=== PATIENT | female | born 1975 | race Caucasian/White ===

== ENCOUNTER 2020-05-10 14:22 | Inpatient (IN) | payer MEDICAID ==
[~2020-05-10] VITALS: Ht 165.1 cm; Wt 112.7 kg
[~2020-05-10 14:22] MED LIST: OMEG1CAP6 PO; PROZ10 PO; TOPI50TA PO; TRAZ150T79 PO
[2020-05-10 16:49] VITALS: BP 109/89
[2020-05-10] MEDS ORDERED: LORazepam 2 MG TABLET PO PRN (17:00)
[2020-05-10] MEDS ORDERED: ChlorproMAZINE HCL 100 MG TABLET PO PRN (17:00)
[2020-05-10 17:10] VITALS: BP 138/93
[2020-05-10] MEDS ORDERED: MAGNESIUM HYDROXIDE SUSPENSION 30 ML UDCUP PO PRN (21:00)
[2020-05-10] MEDS ORDERED: ALBUTEROL SULFATE HFA 90 MCG/PUFF 8 GM INHALER IH PRN (21:00)
[2020-05-10] MEDS ORDERED: DOCUSATE SODIUM 100 MG CAPSULE PO PRN (21:00)
[2020-05-10] MEDS ORDERED: CloNIDine HCL 0.1 MG TABLET PO PRN (21:00)
[2020-05-10] MEDS ORDERED: ONDANSETRON HCL 4 MG TABLET PO PRN (21:00)
[2020-05-10] MEDS ORDERED: BENZOCAINE/MENTHOL LOZENGE MM PRN (21:00)
[2020-05-10] MEDS ORDERED: LOPERAMIDE HCL 2 MG CAPSULE PO PRN (21:00)
[2020-05-10] MEDS ORDERED: BACITRACIN 28.4 GM OINTMENT TP PRN (21:00)
[2020-05-10] MEDS ORDERED: MAG HYDROX/AL HYDROX/SIMETH ES 30 ML SUSPENSION UDCUP PO PRN (21:00)
[2020-05-10] MEDS ORDERED: ACETAMINOPHEN 325 MG TABLET PO PRN (21:00)
[2020-05-10] MEDS ORDERED: IBUPROFEN 600 MG TABLET PO PRN (21:00)
[2020-05-10] MEDS ORDERED: PETROLATUM,WHITE 28 GM JELLY TP PRN (21:00)
[2020-05-10] MEDS ORDERED: OMEPRAZOLE 20 MG CAPSULE PO PRN (21:00)
[2020-05-10] MEDS: ZOLPIDEM TARTRATE 10 MG TABLET PO PRN (21:05)
[2020-05-11] MEDS: LORazepam 1 MG TABLET PO PRN ×2 (00:04→16:59)
[2020-05-11 00:17] VITALS: BP 106/75
[2020-05-11 08:47] LABS: BASOPHILS % (AUTO) 0.4 % (0.0-2.0); HEMATOCRIT 39.7 % (36-46); HEMOGLOBIN 13.2 g/dL (12.0-16.0); LYMPHOCYTES # (AUTO) 3.8 K/uL (1.0-4.8); LYMPHOCYTES % (AUTO) 42.2 % (22.0-44.0); MEAN CORPUSCULAR HGB CONC 33.2 G/dL (31.0-37.0); MEAN CORPUSCULAR VOLUME 87 fL (80-100); MONOCYTES # (AUTO) 0.6 K/uL (0.1-1.0); MONOCYTES % (AUTO) 6.8 % (2.0-9.0); NEUTROPHILS # (AUTO) 4.3 K/uL (1.8-7.7); NEUTROPHILS % (AUTO) 47.6 % (40.0-70.0); PLATELET COUNT (AUTO) 245 K/uL (150-450); RED BLOOD CELL COUNT(AUTO) 4.55 MIL/uL (4.00-5.20); RED CELL DISTRIBUTION WIDTH 15.3 % (11.5-14.5)
[2020-05-11 08:58] VITALS: BP 104/78
[2020-05-11 08:59] LABS: ALANINE AMINOTRANSFERASE 42 U/L (12-78); ALBUMIN 3.5 g/dL (3.4-5.0); ALKALINE PHOSPHATASE 63 U/L (46-116); ANION GAP 9 mmol/L (8-16); ASPARTATE AMINOTRANSFERASE 27 U/L (15-37); BILIRUBIN,TOTAL 0.3 mg/dL (0.1-1.0); CALCIUM, TOTAL 8.7 mg/dL (8.8-10.5); CARBON DIOXIDE 27 mmol/L (22-29); CHLORIDE 107 mmol/L (98-107); CHOLESTEROL 185 mg/dL (131-200); CREATININE 1.03 mg/dL (0.60-1.30); GLOMERULAR FILTR. RATE CALC 59 mL/min (>60); GLUCOSE,RANDOM 92 mg/dL (70-110); HDL CHOLESTEROL 37 mg/dL (40-60); LDL CHOL (CALC.) 104 mg/dL (0-130); POTASSIUM 3.8 mmol/L (3.5-5.1); SODIUM SERUM 143 mmol/L (136-145); TOTAL PROTEIN, SERUM 7.7 g/dL (6.4-8.2); TRIGLYCERIDES 219 mg/dL (15-150); UREA NITROGEN, BLOOD 20 mg/dL (7-18)
[2020-05-11] MEDS ORDERED: ESCITALOPRAM OXALATE 10 MG TABLET PO SCH (09:00)
[2020-05-11] MEDS ORDERED: ARIPiprazole 5 MG TABLET PO SCH (09:00)
[2020-05-11 09:02] LABS: LITHIUM < 0.20 mmol/L (0.60-1.20)
[2020-05-11 09:22] LABS: HEMOGLOBIN A1C 6.1 % (3.8-5.6)
[2020-05-11] MEDS ORDERED: QUEtiapine FUMARATE 100 MG TABLET PO PRN (14:45)
[2020-05-11 16:21] VITALS: BP 103/69
[2020-05-11] MEDS ORDERED: QUEtiapine FUMARATE 200 MG TABLET PO SCH (21:00)
[2020-05-11] MEDS: DIVALPROEX SODIUM 500 MG ER TABLET PO SCH (21:06)
[2020-05-11] MEDS ORDERED: GuaiFENesin/D-METHORPHAN [SUGAR-FREE] 200-20MG/10 ML SYRUP UDCUP PO PRN (21:30)
[2020-05-11] MEDS ORDERED: HydrOXYzine PAMOATE 50 MG CAPSULE PO PRN (21:30)
[2020-05-12 04:00] VITALS: BP 100/60
[2020-05-12 08:26] LABS: CHOLESTEROL 175 mg/dL (131-200); FREE T4 (FREE THYROXINE) 0.86 ng/dL (0.76-1.46); HCG,QUANTITATIVE < 1 mIU/mL (0-6); HDL CHOLESTEROL 35 mg/dL (40-60); LDL CHOL (CALC.) 96 mg/dL (0-130); THYROID STIMULATING HORMONE 5.22 uIU/mL (0.36-3.74); TRIGLYCERIDES 222 mg/dL (15-150)
[2020-05-12] MEDS: FOLIC ACID 1 MG TABLET PO SCH (08:27)
[2020-05-12] MEDS: BuPROPion HCL XL 150 MG ER TABLET PO SCH (08:27)
[2020-05-12] MEDS: MULTIVITAMINS WITH MINERALS, THERAPEUTIC TABLET PO SCH (08:27)
[2020-05-12] MEDS: THIAMINE 100 MG TABLET PO SCH ×2 (08:28→16:14)
[2020-05-12] MEDS: NALTREXONE HCL 50 MG TABLET PO SCH (08:28)
[2020-05-12 08:55] VITALS: BP 127/60
[2020-05-12] MEDS ORDERED: ATOMOXETINE HCL 25 MG CAPSULE PO SCH (09:00)
[2020-05-12] MEDS ORDERED: BUPR-93 PO (13:39)
[2020-05-12] MEDS ORDERED: DIVA-80 PO (13:39)
[2020-05-12] MEDS ORDERED: ATOM25CA8 PO (13:39)
[2020-05-12] MEDS ORDERED: QUET200T PO (13:39)
[2020-05-12] MEDS ORDERED: NALT50TA6 PO (13:39)
[2020-05-12 17:51] VITALS: BP 110/71
[2020-05-12] MEDS: DIVALPROEX SODIUM 500 MG ER TABLET PO SCH (20:10)
[2020-05-12] MEDS: QUEtiapine FUMARATE 200 MG TABLET PO SCH (20:10)
[2020-05-13] VITALS (7 sets, daily range): BP systolic 106–118; BP diastolic 60–70
[2020-05-13 07:48] LABS: APPEARANCE,URINE CLEAR (CLEAR); BILIRUBIN,URINE NEGATIVE (NEGATIVE); GLUCOSE, URINE (UA) NEGATIVE (NEGATIVE); KETONES,URINE TRACE mg/dL (NEGATIVE); LEUKOCYTE ESTERASE ,URINE NEGATIVE (NEGATIVE); NITRATE,URINE NEGATIVE (NEGATIVE); OCCULT BLOOD,URINE NEGATIVE (NEGATIVE); PROTEIN,URINE NEGATIVE (NEGATIVE); UROBILINOGEN,URINE 0.2 mg/dL (<=1.0)
[2020-05-13] MEDS: ATOMOXETINE HCL 40 MG CAPSULE PO SCH (09:08)
[2020-05-13] MEDS: FOLIC ACID 1 MG TABLET PO SCH (09:08)
[2020-05-13] MEDS: MULTIVITAMINS WITH MINERALS, THERAPEUTIC TABLET PO SCH (09:08)
[2020-05-13] MEDS: BuPROPion HCL XL 150 MG ER TABLET PO SCH (09:08)
[2020-05-13] MEDS: NALTREXONE HCL 50 MG TABLET PO SCH (09:08)
[2020-05-13] MEDS: THIAMINE 100 MG TABLET PO SCH ×2 (09:08→17:17)
[2020-05-13] MEDS: LORazepam 1 MG TABLET PO PRN (13:27)
[2020-05-13] MEDS: DIVALPROEX SODIUM 500 MG ER TABLET PO SCH (23:06)
[2020-05-13] MEDS: QUEtiapine FUMARATE 200 MG TABLET PO SCH (23:06)
[2020-05-14 05:42] VITALS: BP 106/70
[2020-05-14] MEDS: ATOMOXETINE HCL 40 MG CAPSULE PO SCH (08:52)
[2020-05-14] MEDS: SULFAMETHOX/TRIMETH DS 800-160 MG/TABLET PO SCH ×2 (08:53→16:46)
[2020-05-14] MEDS: THIAMINE 100 MG TABLET PO SCH ×2 (08:53→16:46)
[2020-05-14] MEDS: FOLIC ACID 1 MG TABLET PO SCH (08:53)
[2020-05-14] MEDS: NALTREXONE HCL 50 MG TABLET PO SCH (08:53)
[2020-05-14] MEDS: BuPROPion HCL XL 150 MG ER TABLET PO SCH (08:53)
[2020-05-14] MEDS: MULTIVITAMINS WITH MINERALS, THERAPEUTIC TABLET PO SCH (08:53)
[2020-05-14 13:17] VITALS: BP 93/62
[2020-05-14 16:00] VITALS: BP 103/67
[2020-05-14] MEDS: QUEtiapine FUMARATE 200 MG TABLET PO SCH (20:05)
[2020-05-14] MEDS: DIVALPROEX SODIUM 500 MG ER TABLET PO SCH (20:05)
[2020-05-15] MEDS: ZOLPIDEM TARTRATE 10 MG TABLET PO PRN (00:12)
[2020-05-15 00:19] LABS: GLUCOMETER DEV NAME(LOC) BV2S.; GLUCOSE,POINT OF CARE 87 MG/DL (70-110)
[2020-05-15 00:41] VITALS: BP 104/79
[2020-05-15 08:23] VITALS: BP 96/59
[2020-05-15] MEDS: MULTIVITAMINS WITH MINERALS, THERAPEUTIC TABLET PO SCH (08:50)
[2020-05-15] MEDS: BuPROPion HCL XL 150 MG ER TABLET PO SCH (08:50)
[2020-05-15] MEDS: NALTREXONE HCL 50 MG TABLET PO SCH (08:50)
[2020-05-15] MEDS: THIAMINE 100 MG TABLET PO SCH (08:50)
[2020-05-15] MEDS: FOLIC ACID 1 MG TABLET PO SCH (08:51)
[2020-05-15] MEDS: ATOMOXETINE HCL 40 MG CAPSULE PO SCH (08:51)
[2020-05-15] MEDS: SULFAMETHOX/TRIMETH DS 800-160 MG/TABLET PO SCH (09:43)
[2020-05-15] MEDS ORDERED: ATOM40CA9 PO (14:24)
[2020-05-15] MEDS ORDERED: BUPR-47 PO (14:24)
[2020-05-15] MEDS ORDERED: DIVA-80 PO (14:24)
[2020-05-15] MEDS ORDERED: NALT50TA PO (14:24)
[2020-05-15] MEDS ORDERED: QUET200T29 PO (14:24)
[2020-05-15] MEDS ORDERED: SULF1TAB42 PO (15:05)
== END 2020-05-15 15:50 | disposition home or self-care (01) | DRG 885 ==
LOC: B2S 17:14
PROVIDERS: ADMIT Psychiatry & Neurology Psychiatry; ATTEND Psychiatry & Neurology Psychiatry
DX: F31.5 Bipolar disorder, current episode depressed, severe, with psychotic features (principal); R45.851 Suicidal ideations; Z68.41 Body mass index [BMI] 40.0-44.9, adult; N39.0 Urinary tract infection, site not specified; F41.9 Anxiety disorder, unspecified; I10 Essential (primary) hypertension; E11.9 Type 2 diabetes mellitus without complications; K21.9 Gastro-esophageal reflux disease without esophagitis; R56.9 Unspecified convulsions; E66.9 Obesity, unspecified; K59.00 Constipation, unspecified; F15.90 Other stimulant use, unspecified, uncomplicated; Z91.19 Patient's noncompliance with other medical treatment and regimen; R53.83 Other fatigue
CPT/HCPCS: 83036; 84439; 84443; 86592; Q0162

== ENCOUNTER 2020-05-13 18:53 | Emergency (ER) | payer MEDICAID, OTHER ==
[~2020-05-13] VITALS: Ht 165.1 cm; Wt 109.1 kg
[2020-05-13 20:12] LABS: APPEARANCE,URINE CLEAR (CLEAR); BILIRUBIN,URINE NEGATIVE (NEGATIVE); GLUCOSE, URINE (UA) NEGATIVE (NEGATIVE); KETONES,URINE TRACE mg/dL (NEGATIVE); LEUKOCYTE ESTERASE ,URINE NEGATIVE (NEGATIVE); NITRATE,URINE NEGATIVE (NEGATIVE); OCCULT BLOOD,URINE NEGATIVE (NEGATIVE); PROTEIN,URINE NEGATIVE (NEGATIVE); UROBILINOGEN,URINE 0.2 mg/dL (<=1.0)
[2020-05-13] MEDS ORDERED: ACETAMINOPHEN 325 MG TABLET PO ONE (20:15)
[2020-05-13] MEDS ORDERED: CefTRIAXone SODIUM 1 GM/VIAL IM ONE (20:15)
[2020-05-13] MEDS ORDERED: AZITHROMYCIN 500 MG TABLET PO ONE (20:15)
[2020-05-13] MEDS ORDERED: SULFAMETHOX/TRIMETH DS 800-160 MG/TABLET PO ONE (20:15)
[2020-05-13 20:45] LABS: BACTERIA,URINE None Seen /HPF (None Seen); RBC,URINE None Seen /HPF (0-2); SQUAMOUS EPITHELIAL CELL,UR Few /LPF (None Seen); WBC,URINE None Seen /HPF (0-5)
[2020-05-13 20:50] LABS: BASOPHILS % (AUTO) 0.4 % (0.0-2.0); EOSINOPHILS % (AUTO) 2.5 % (1.0-6.0); HEMATOCRIT 36.8 % (36-46); HEMOGLOBIN 12.2 g/dL (12.0-16.0); LYMPHOCYTES # (AUTO) 3.4 K/uL (1.0-4.8); LYMPHOCYTES % (AUTO) 38.8 % (22.0-44.0); MEAN CORPUSCULAR VOLUME 88 fL (80-100); MONOCYTES # (AUTO) 0.5 K/uL (0.1-1.0); MONOCYTES % (AUTO) 5.3 % (2.0-9.0); NEUTROPHILS # (AUTO) 4.6 K/uL (1.8-7.7); PLATELET COUNT (AUTO) 237 K/uL (150-450); RED CELL DISTRIBUTION WIDTH 15.2 % (11.5-14.5)
[2020-05-13 20:52] LABS: CALCIUM, TOTAL 8.7 mg/dL (8.8-10.5); CREATININE 1.04 mg/dL (0.60-1.30); POTASSIUM 4.1 mmol/L (3.5-5.1)
[2020-05-13 20:58] LABS: ALBUMIN 3.3 g/dL (3.4-5.0); BILIRUBIN,TOTAL 0.1 mg/dL (0.1-1.0); TOTAL PROTEIN, SERUM 7.1 g/dL (6.4-8.2)
[2020-05-13 21:00] VITALS: BP 119/83
== END 2020-05-13 23:29 | disposition home or self-care (01) ==
LOC: EMS 18:58
DX: R55 Syncope and collapse (principal); R30.0 Dysuria; M25.562 Pain in left knee; R42 Dizziness and giddiness; F32.9 Major depressive disorder, single episode, unspecified; F19.90 Other psychoactive substance use, unspecified, uncomplicated; Z90.89 Acquired absence of other organs
CPT/HCPCS: 36415; 73562; 80053; 81001; 84484; 84703; 85025; 87491; 87591; 93005; 96372; 99285; J0696